=== PATIENT | female | born 1945 | race Caucasian/White ===

== ENCOUNTER 2018-09-09 22:23 | Inpatient (IN) | payer MEDICARE ==
[~2018-09-09] VITALS: Ht 152.4 cm; Wt 61.2 kg
[2018-09-09 23:54] LABS: EOSINOPHILS % 2.4 % (0.0-5.0); HEMATOCRIT. 38.1 % (36.0-48.0); HEMOGLOBIN. 12.9 g/dL (12.0-16.0); LYMPHOCYTES % 17.9 % (20.0-50.0); MEAN CORPUSCULAR HEMOGLOBIN 30.5 pg (28.0-32.0); MEAN CORPUSCULAR VOLUME 89.8 fL (81.0-99.0); MEAN PLATELET VOLUME 9.2 fl (7.4-10.4); MONOCYTES % 7.4 % (2.0-8.0); NEUTROPHILS % 71.3 % (40.0-76.0); PLATELET 240 x1000/uL (130-400); RED BLOOD CELL COUNT 4.25 mill/uL (4.2-5.4); RED CELL DISTRIBUTION WIDTH 13.5 % (11.6-14.6)
[2018-09-10 00:02] LABS: CHLORIDE 106 mEq/L (98-107)
[2018-09-10 00:10] LABS: ETHANOL BLOOD < 10 mg/dL
[2018-09-10] MEDS ORDERED: HYDRALAZINE HCL 25MG TABLET PO ONE (02:15)
[2018-09-10 05:54] LABS: CLARITY URINE CLEAR (CLEAR); COLOR URINE YELLOW (YELLOW); KETONES URINE TRACE (NEGATIVE); LEUKOCYTE ESTERASE URINE TRACE (NEGATIVE); NITRITE URINE NEGATIVE (NEGATIVE); OCCULT BLOOD URINE NEGATIVE (NEGATIVE); PROTEIN URINE NEGATIVE (NEGATIVE); UROBILINOGEN URINE 0.2 E.U./dL (0.2-1.0)
[2018-09-10 06:53] LABS: *AMPHETAMINES SCREEN URINE NEGATIVE (NEGATIVE); *BARBITURATES SCREEN URINE NEGATIVE (NEGATIVE); *BENZODIAZEPINES SCREEN URINE NEGATIVE (NEGATIVE)
[2018-09-10 06:54] LABS: *COCAINE SCREEN URINE NEGATIVE (NEGATIVE); CANNABINOID URINE SCREEN NEGATIVE (NEGATIVE); METHADONE URINE SCREEN NEGATIVE (NEGATIVE); OPIATES URINE SCREEN NEGATIVE (NEGATIVE); PHENCYCLIDINE URINE SCREEN NEGATIVE (NEGATIVE)
[2018-09-10] MEDS ORDERED: HYDROCODONE/ACETAMINOPHEN 5/325MG TABLET PO PRN ×2 (07:00→11:45)
[2018-09-10] MEDS ORDERED: ACETAMINOPHEN 325MG TABLET PO PRN ×2 (07:00→11:45)
[2018-09-10] MEDS ORDERED: IPRATROPIUM/ALBUTEROL 0.5-3(2.5)MG/3ML NEB INH PRN ×2 (07:00→12:00)
[2018-09-10] MEDS ORDERED: MAGNESIUM/ALUMINUM HYDROXIDE/SIMETHICONE 30ML UDC PO PRN ×2 (07:00→11:45)
[2018-09-10] MEDS ORDERED: ONDANSETRON HCL 4MG/2ML INJ IV PRN ×2 (07:00→11:45)
[2018-09-10] MEDS ORDERED: NA PHOS,M-B/NA PHOS,DI-BA ENEMA 118ML PR PRN ×2 (07:00→11:45)
[2018-09-10] MEDS ORDERED: MORPHINE SULFATE 2 MG/ML CPJ (NOT FOR IM USE) IV PRN (07:00)
[2018-09-10] MEDS ORDERED: CLONIDINE 0.1MG TABLET PO PRN ×2 (07:00→11:45)
[2018-09-10] MEDS ORDERED: LORAZEPAM 2MG/ML CPJ IV PRN ×2 (07:00→11:45)
[2018-09-10] MEDS ORDERED: GUAIFENESIN 200MG/10ML SUGAR FREE UDC PO PRN ×2 (07:00→11:45)
[2018-09-10] MEDS ORDERED: DOCUSATE SODIUM 100MG CAPSULE PO PRN ×2 (07:00→11:45)
[2018-09-10] MEDS ORDERED: ENOXAPARIN 40MG/0.4ML SYR SUBCUT SCH ×2 (07:00→11:45)
[2018-09-10] MEDS ORDERED: SODIUM CHLORIDE 0.45% 1,000 ML IV SCH ×2 (07:02→11:45)
[2018-09-10] MEDS ORDERED: ASPIRIN 81MG EC TABLET PO SCH (10:30)
[2018-09-10] MEDS ORDERED: MORPHINE SULFATE 4 MG/ML CPJ (NOT FOR IM USE) IV PRN (11:45)
[2018-09-10 11:58] VITALS: BP 176/82
[2018-09-10 12:00] VITALS: BP 176/82
[2018-09-10] MEDS: SODIUM CHLORIDE 0.9% 1,000 ML IV SCH (12:56)
[2018-09-10] MEDS: ENOXAPARIN 30MG/0.3ML SYR SUBCUT SCH (12:57)
[2018-09-10] MEDS ORDERED: KEPP250 MT ×2 (13:10→13:23)
[2018-09-10] MEDS ORDERED: COR6 MT (13:23)
[2018-09-10] MEDS ORDERED: POTA20TA82 MT (13:23)
[2018-09-10] MEDS ORDERED: PROT20 MT (13:23)
[2018-09-10] MEDS ORDERED: LIP40 PO (13:23)
[2018-09-10] MEDS ORDERED: MEMA1CAP3 MT (13:23)
[2018-09-10] MEDS ORDERED: CHOL20004 MT (13:23)
[2018-09-10] MEDS ORDERED: PROT40 MT (13:23)
[2018-09-10] MEDS ORDERED: LEVO50TA MT (13:23)
[2018-09-10] MEDS ORDERED: FLUO20CA33 MT (13:23)
[2018-09-10] MEDS ORDERED: NON FORMULARY PATIENT HOME MED EA XX SCH (13:30)
[2018-09-10] MEDS: FLUOXETINE HCL 20MG CAPSULE PO SCH (14:52)
[2018-09-10] MEDS: CHOLECALCIFEROL (D3) 1000 UNIT TABLET PO SCH (14:52)
[2018-09-10 16:21] VITALS: BP 144/64
[2018-09-10 17:28] LABS: T4 FREE 1.39 ng/dL (0.76-1.46)
[2018-09-10 17:37] LABS: CREATINE KINASE 59 IU/L (26-192); CREATINE KINASE MB FRACTION < 1.0 ng/mL (0.5-3.6)
[2018-09-10 20:00] VITALS: BP 107/42
[2018-09-10] MEDS: CARVEDILOL 6.25 MG TABLET PO SCH (21:00)
[2018-09-10] MEDS: LEVETIRACETAM 250MG TABLET PO SCH (22:19)
[2018-09-10] MEDS: MEMANTINE HCL 10MG TABLET PO SCH (22:19)
[2018-09-10] MEDS: DONEPEZIL HCL 5MG TABLET PO SCH (22:19)
[2018-09-10] MEDS: ATORVASTATIN CALCIUM 40MG TABLET PO SCH (22:24)
[2018-09-11] VITALS: BP 119/44
[2018-09-11 01:10] LABS: CREATINE KINASE 46 IU/L (26-192); CREATINE KINASE MB FRACTION < 1.0 ng/mL (0.5-3.6)
[2018-09-11 04:00] VITALS: BP 122/46
[2018-09-11] MEDS: PANTOPRAZOLE 40MG DR TABLET PO SCH (07:27)
[2018-09-11] MEDS: LEVOTHYROXINE SODIUM 50MCG TABLET PO SCH (07:27)
[2018-09-11] MEDS: SODIUM CHLORIDE 0.9% 1,000 ML IV SCH (07:28)
[2018-09-11 07:54] LABS: CREATINE KINASE 43 IU/L (26-192); CREATINE KINASE MB FRACTION < 1.0 ng/mL (0.5-3.6)
[2018-09-11] MEDS: FLUOXETINE HCL 20MG CAPSULE PO SCH (09:32)
[2018-09-11] MEDS: CHOLECALCIFEROL (D3) 1000 UNIT TABLET PO SCH (09:32)
[2018-09-11] MEDS: DONEPEZIL HCL 5MG TABLET PO SCH ×2 (09:32→22:03)
[2018-09-11] MEDS: MEMANTINE HCL 10MG TABLET PO SCH ×2 (09:32→22:02)
[2018-09-11] MEDS: CARVEDILOL 6.25 MG TABLET PO SCH ×2 (09:32→22:03)
[2018-09-11] MEDS: LEVETIRACETAM 250MG TABLET PO SCH ×2 (09:32→22:01)
[2018-09-11] MEDS: ENOXAPARIN 30MG/0.3ML SYR SUBCUT SCH (09:34)
[2018-09-11 12:00] VITALS: BP_SYST 132; BP_SYST 148; BP_DIAS 53; BP_DIAS 58
[2018-09-11 16:00] VITALS: BP 139/71
[2018-09-11] MEDS: ASPIRIN 81MG EC TABLET PO SCH (18:25)
[2018-09-11 20:00] VITALS: BP 159/71
[2018-09-11] MEDS: ATORVASTATIN CALCIUM 40MG TABLET PO SCH (22:03)
[2018-09-12] VITALS: BP 170/55
[2018-09-12 04:00] VITALS: BP 129/52
[2018-09-12] MEDS: LEVOTHYROXINE SODIUM 50MCG TABLET PO SCH (06:17)
[2018-09-12] MEDS: PANTOPRAZOLE 40MG DR TABLET PO SCH (06:18)
[2018-09-12 08:00] VITALS: BP 144/62
[2018-09-12] MEDS: DONEPEZIL HCL 5MG TABLET PO SCH (09:00)
[2018-09-12] MEDS: MEMANTINE HCL 10MG TABLET PO SCH (09:00)
[2018-09-12] MEDS: LEVETIRACETAM 250MG TABLET PO SCH (10:40)
[2018-09-12] MEDS: ASPIRIN 81MG EC TABLET PO SCH (10:41)
[2018-09-12] MEDS: FLUOXETINE HCL 20MG CAPSULE PO SCH (10:41)
[2018-09-12] MEDS: CHOLECALCIFEROL (D3) 1000 UNIT TABLET PO SCH (10:41)
[2018-09-12] MEDS: CARVEDILOL 6.25 MG TABLET PO SCH (10:41)
[2018-09-12] MEDS: ENOXAPARIN 30MG/0.3ML SYR SUBCUT SCH (10:43)
[2018-09-12 12:00] VITALS: BP 191/71
[2018-09-12 16:00] VITALS: BP 115/55
[2018-09-12 18:29] VITALS: BP 115/55
== END 2018-09-12 19:16 | disposition home or self-care (01) | DRG 73 ==
LOC: ER 22:23 → 6WST 09-10 02:57 → EDBEDREQ 09-10 03:00 → EDBEDREQTM 09-10 03:00 → EDBEDREQDT 09-10 03:00 → ENRESERV 09-10 10:42 → ER 09-10 11:30
PROVIDERS: ADMIT Internal Medicine; ATTEND Internal Medicine
DX: G90.8 Other disorders of autonomic nervous system (principal); N17.0 Acute kidney failure with tubular necrosis; Z86.73 Personal history of transient ischemic attack (TIA), and cerebral infarction without residual deficits; I10 Essential (primary) hypertension; E78.5 Hyperlipidemia, unspecified; E11.9 Type 2 diabetes mellitus without complications; I25.10 Atherosclerotic heart disease of native coronary artery without angina pectoris; H91.93 Unspecified hearing loss, bilateral; Z79.899 Other long term (current) drug therapy
CPT/HCPCS: 36415; 70450; 71045; 72125; 80048; 80053; 80061; 80305; 81003; 82550; 82553; 83036; 83880; 84439; 84443; 84484; 85025; 85379; 93005; 93306; 93970; 99285; G0482; J1650; J7030